=== PATIENT | female | born 1960 | race Caucasian/White ===

== ENCOUNTER 2025-03-14 11:44 | Outpatient (CLI) | payer BC, SELFPAY ==
[2025-03-14 12:22] LABS: Basophils # 0.1 K/mm3 (0-0.2); Basophils % 0.5 % (0.1-2.0); Eosinophils # 0.1 Kmm3 (0.0-0.4); Hematocrit 38.2 % (37.0-47.0); Hemoglobin 13.1 g/dL (12.2-16.2); Immature Granulocytes # 0.04 10^3uL; Immature Granulocytes % 0.4 %; Lymphocytes # 2.5 K/mm3 (0.7-4.5); Lymphocytes % 24.1 % (10-50); Mean Corpuscular HGB Conc 34.3 g/dL (31.8-35.4); Mean Corpuscular Volume 90.5 fl (81-99); Mean Platelet Volume 7.8 fl (7.4-10.4); Monocytes # 0.8 K/mm3 (0.1-1.0); Monocytes % 7.5 % (1.7-9.3); Neutrophils # 6.8 K/mm3 (1.8-7.8); Neutrophils % 66.5 % (37.0-80.0); Nucleated Red Blood Cells # 0 10^3/uL; Nucleated Red Blood Cells % 0 %; Platelet Count 760 K/mm3 (142-424); Red Blood Count 4.22 M/mm3 (4.20-5.40); Red Cell Distribution Width 13.4 % (11.5-17.5); Red Cell Distribution Width-SD 44.8 fL; White Blood Count 10.2 K/mm3 (4.8-10.8)
[2025-03-14 12:51] LABS: Iron 53 ug/dL (37-170)
[2025-03-14 13:02] LABS: Total Iron Binding Capacity 270 ug/dL (265-497)
[2025-03-14 13:28] LABS: Ferritin 135 ng/ml (11.1-264)
== END 2025-03-14 23:59 | disposition home or self-care (01) ==
LOC: LAB 11:46
PROVIDERS: PCP Pediatrics; Visit Provider Internal Medicine Medical Oncology
DX: D75.839 Thrombocytosis, unspecified (principal)
CPT/HCPCS: 36415; 81270; 82728; 83540; 83550; 85025